=== PATIENT | female | born 1945 | race Caucasian/White ===

== ENCOUNTER 2020-10-14 07:32 | Inpatient (IN) | payer MEDICARE ==
[2020-10-14] MEDS ORDERED: Dexamethasone 10 MG/ML VIAL ONE ×2 (08:09→19:58)
[2020-10-14] MEDS ORDERED: Magnesium 2 GM/50 ML BAG (IN WATER) ONE (08:10)
[2020-10-14] MEDS ORDERED: Azithromycin 500 MG VIAL ONE (08:10)
[2020-10-14] MEDS ORDERED: cefTRIAXone\\ROCEPHIN 1 GM VIAL ONE (08:10)
[2020-10-14 08:11] LABS: #Monocytes 0.8 10x3/uL (0.0-1.1); #Neutrophils 7.3 10x3/uL (1.5-8.4); %Basophils 0.3 % (0.0-2.0); %Monocytes 8.1 % (0.0-10.0); Hemoglobin 13.4 g/dL (12.0-15.5); Mean Corpuscular HGB CONC 32.1 g/dL (32.0-36.0); Mean Corpuscular Hemoglobin 26.7 pg (27.0-33.0); Mean Corpuscular Volume 83.3 fl (81.6-98.3); Mean Platelet Volume 11.9 fl (7.4-10.4); Platelet Count 220 10x3/uL (150-450); RBC Distribution Width 15.6 % (11.5-14.5); Red Blood Cell (RBC) Count 5.02 10x6/uL (3.90-5.03); White Blood Cell (WBC) Count 9.4 10x3/uL (3.5-10.5)
[2020-10-14 08:24] LABS: ALT (SGPT) 70 U/L (8-55); AST (SGOT) 148 U/L (5-34); Albumin 3.5 g/dL (3.4-4.8); Alkaline Phosphatase 117 U/L (40-110); Anion Gap 23 mmol/L (10-20); BUN (Urea Nitrogen) 33 mg/dL (9.8-20.1); Bilirubin, Total 0.5 mg/dL (0.2-1.2); Calc. Creatinine Clearance 0 mL/min (70-130); Calcium 8.7 mg/dL (7.8-10.44); Carbon Dioxide 16 mmol/L (23-31); Chloride 110 mmol/L (98-107); Globulin 3.2 g/dL (2.4-3.5); Glucose 151 mg/dL (83-110); Potassium 5.7 mmol/L (3.5-5.1); Protein, Total 6.7 g/dL (5.8-8.1); Sodium 143 mmol/L (136-145)
[2020-10-14] MEDS ORDERED: Insulin Regular 300 UNITS/3 ML VIAL ONE (09:17)
[2020-10-14] MEDS ORDERED: Dextrose 50% Abboject 50 ML SYRINGE ONE (09:17)
[2020-10-14 09:25] LABS: SARS-CoV-2 NAA Rapid Test DETECTED (NotDetected)
[2020-10-14] MEDS ORDERED: Albuterol Sulfate 2.5 mg/3 ml Neb ONE (09:37)
[2020-10-14] MEDS ORDERED: Lorazepam 2 MG/ML VIAL ONE ×3 (09:51→14:35)
[2020-10-14 11:00] LABS: ALV-art Gradient 564.675 mmHg (0-20); Actual Bicarbonate (HCO3a) 17.1 mEq/L (22-28); Base Excess (BEa) -10.1 mEq/L (-2.0 to +3.0); CO2 Tension 42.5 mmHg (35.0-45.0); Calcium, Ionized (arterial) 1.11 mmol/L (1.12-1.30); Carboxyhemoglobin (COHb) 0.3 gm% (0.0-3.0); Hemoglobin (Hb) 13.2 g/dL (12.0-16.0); O2 Tension (PaO2), arterial 95.2 mmHg (> 70.0); Puncture Site LBA; pH, Arterial 7.22 (7.35-7.45)
[2020-10-14 11:28] LABS: Lactic Acid 5.8 mmol/L (0.5-2.2)
[2020-10-14] MEDS ORDERED: Sodium Chloride 0.9% 1,000 ML IV SCH ×2 (11:30)
[2020-10-14] MEDS ORDERED: Ondansetron PF 4 MG/2 ML Vial IVP PRN (11:38)
[2020-10-14] MEDS ORDERED: Ondansetron ODT 4 MG TAB PO PRN (11:38)
[2020-10-14] MEDS ORDERED: Acetaminophen 325 MG TAB PO PRN (11:38)
[2020-10-14] MEDS ORDERED: Lorazepam 2 MG/ML VIAL SLOW IVP PRN (11:43)
[2020-10-14] MEDS ORDERED: HumaLOG 300 UNITS/3 ML VIAL SC PRN (11:45)
[2020-10-14] MEDS ORDERED: Dextrose 5% in Water 1,000 ML IV PRN (11:45)
[2020-10-14] MEDS ORDERED: Dextrose 50% Abboject 50 ML SYRINGE SLOW IVP PRN (11:45)
[2020-10-14 12:24] LABS: Troponin I Less than 0.010 ng/mL (< 0.028)
[2020-10-14] MEDS: Sodium Chloride 0.9% 1,000 ML IV SCH (13:00)
[2020-10-14 14:11] LABS: Troponin I Less than 0.010 ng/mL (< 0.028)
[2020-10-14] MEDS ORDERED: Albuterol Sulfate 2.5 mg/3 ml Neb NEB PRN (15:01)
[2020-10-14] MEDS ORDERED: Morphine 2 MG/ML VIAL ONE (19:34)
[2020-10-14] MEDS: Morphine 2 MG/ML VIAL SLOW IVP PRN (19:51)
[2020-10-14] MEDS ORDERED: Enoxaparin Sodium 40 MG/0.4 ML SYRINGE ONE (19:59)
[2020-10-14] MEDS ORDERED: Enoxaparin Sodium 40 MG/0.4 ML SYRINGE SC SCH (21:00)
[2020-10-14] MEDS ORDERED: Dexamethasone 4 mg/ml Vial SLOW IVP SCH (21:00)
[2020-10-15] MEDS ORDERED: Ondansetron PF 4 MG/2 ML Vial ONE (03:48)
[2020-10-15] MEDS ORDERED: Morphine 2 MG/ML VIAL ONE ×3 (03:48→11:04)
[2020-10-15] MEDS: Morphine 2 MG/ML VIAL SLOW IVP PRN (03:54)
[2020-10-15] MEDS: Sodium Chloride 0.9% 1,000 ML IV SCH (05:00)
[2020-10-15 07:48] LABS: ALT (SGPT) 66 U/L (8-55); Albumin 2.9 g/dL (3.4-4.8); Alkaline Phosphatase 107 U/L (40-110); Anion Gap 16 mmol/L (10-20); BUN (Urea Nitrogen) 42 mg/dL (9.8-20.1); Bilirubin, Total 0.3 mg/dL (0.2-1.2); Calc. Creatinine Clearance 0 mL/min (70-130); Calcium 8.2 mg/dL (7.8-10.44); Carbon Dioxide 17 mmol/L (23-31); Chloride 114 mmol/L (98-107); Globulin 3.8 g/dL (2.4-3.5); Glucose 373 mg/dL (83-110); Protein, Total 6.7 g/dL (5.8-8.1); Sodium 140 mmol/L (136-145)
[2020-10-15 08:18] LABS: AST (SGOT) 144 U/L (5-34)
[2020-10-15] MEDS ORDERED: Ascorbic Acid 500 mg Chewable Tablet PO SCH (09:00)
[2020-10-15] MEDS ORDERED: Lantus 1000 UNITS/10 ML VIAL SC SCH (09:00)
[2020-10-15] MEDS ORDERED: Zinc Sulfate 220 MG CAP PO SCH (09:00)
[2020-10-15] MEDS ORDERED: Pantoprazole 40 MG VIAL IVP SCH (09:00)
[2020-10-15] MEDS ORDERED: Cholecalciferol (Vitamin D3) 400 UNITS TAB PO SCH (09:00)
[2020-10-15] MEDS ORDERED: Lorazepam 2 MG/ML VIAL ONE ×2 (10:01→11:03)
[2020-10-15 10:08] LABS: Potassium 6.2 mmol/L (3.5-5.1)
== END 2020-10-15 11:25 | disposition expired | DRG 177 ==
LOC: CSHERS 07:32 → CSHERHOLD 17:05
PROVIDERS: ADMIT Family Medicine; ATTEND Hospitalist
PROC: 5A09357 Assistance with Respiratory Ventilation, Less than 24 Consecutive Hours, Continuous Positive Airway Pressure (ICD-10-PCS; principal; 2020-10-14)
DX: U07.1 COVID-19 (principal); J12.82 Pneumonia due to coronavirus disease 2019; J96.01 Acute respiratory failure with hypoxia; E87.2 Acidosis; J44.9 Chronic obstructive pulmonary disease, unspecified; E11.9 Type 2 diabetes mellitus without complications; Z79.4 Long term (current) use of insulin; Z66 Do not resuscitate; Z51.5 Encounter for palliative care; Z90.710 Acquired absence of both cervix and uterus
CPT/HCPCS: 36415; 36416; 36600; 71045; 80053; 82010; 82550; 82805; 83605; 84484; 85025; 85379; 86140; 87040; 93005; 94644; 94660; 94760; 96365; 96367; 96368; 96375; 96376; J0456; J0696; J1100; J1650; J1815; J2060; J2270; J2405; J3475; J7611; Q0162; U0002